=== PATIENT | female | born 1945 | race African-American/Black ===

== ENCOUNTER 2018-05-28 17:19 | Emergency (ER) | payer OTHER, MEDICAID ==
[~2018-05-28] VITALS: Ht 172.7 cm; Wt 78.9 kg
[2018-05-28 21:31] VITALS: BP 157/98
== END 2018-05-28 21:40 | disposition home or self-care (01) ==
LOC: ED 17:19
DX: S13.4XXA Sprain of ligaments of cervical spine, initial encounter (principal); R51 Headache; I10 Essential (primary) hypertension; Z45.018 Encounter for adjustment and management of other part of cardiac pacemaker; Z88.5 Allergy status to narcotic agent; V49.9XXA Car occupant (driver) (passenger) injured in unspecified traffic accident, initial encounter; Y93.I9 Activity, other involving external motion; Y92.488 Other paved roadways as the place of occurrence of the external cause; Y99.8 Other external cause status
CPT/HCPCS: J1885